=== PATIENT | male | born 1950 | race Caucasian/White ===

== ENCOUNTER 2020-10-11 10:56 | Outpatient (REF) | payer MEDICARE, SELFPAY | END 2020-10-11 10:57 | disposition home or self-care (01) | LOC: HO.BBR 10:56 | PROVIDERS: PCP Family Medicine; Visit Provider Internal Medicine | DX: Z13.89 Encounter for screening for other disorder (principal) ==

== ENCOUNTER 2020-10-11 11:40 | Outpatient (REF) | payer SELFPAY ==
[2020-10-11 12:44] LABS: Blood Donor Cholesterol 125
== END 2020-10-11 11:41 | disposition home or self-care (01) ==
LOC: HO.LNC 11:40
PROVIDERS: Visit Provider Pathology Anatomic Pathology & Clinical Pathology
DX: Z13.89 Encounter for screening for other disorder (principal)
CPT/HCPCS: 82465

== ENCOUNTER 2021-02-26 08:52 | Outpatient (REF) | payer MEDICARE, MEDICAID, SELFPAY | END 2021-02-26 08:53 | disposition home or self-care (01) | LOC: HO.BBR 08:52 | PROVIDERS: Visit Provider Internal Medicine | DX: Z13.89 Encounter for screening for other disorder (principal) ==

== ENCOUNTER 2021-03-25 08:56 | Outpatient (REF) | payer MEDICARE, MEDICAID, SELFPAY | END 2021-03-25 08:57 | disposition home or self-care (01) | LOC: HO.BBR 08:56 | PROVIDERS: Visit Provider Internal Medicine | DX: Z13.89 Encounter for screening for other disorder (principal) ==

== ENCOUNTER 2021-07-22 09:12 | Outpatient (REF) | payer MEDICARE, OTHER, SELFPAY | END 2021-07-22 09:13 | disposition home or self-care (01) | LOC: HO.BBR 09:12 | PROVIDERS: PCP Family Medicine; Visit Provider Internal Medicine | DX: Z13.89 Encounter for screening for other disorder (principal) ==

== ENCOUNTER 2021-10-22 14:40 | Outpatient (REF) | payer MEDICARE, OTHER, SELFPAY | END 2021-10-22 14:41 | disposition home or self-care (01) | LOC: HO.BBR 14:40 | PROVIDERS: Visit Provider Internal Medicine | DX: Z13.89 Encounter for screening for other disorder (principal) ==

== ENCOUNTER → 2023-01-08 09:43 | Outpatient (BNVA) | payer MEDICARE, SELFPAY | PROVIDERS: PCP Family Medicine; Visit Provider Psychiatry & Neurology Neurology | DX: G25.2 Other specified forms of tremor (principal); G47.10 Hypersomnia, unspecified; R06.83 Snoring | CPT/HCPCS: 99202 ==

== ENCOUNTER → 2023-02-06 08:50 | Outpatient (REF) | payer MEDICARE, SELFPAY | LOC: HO.SL 08:50 | PROVIDERS: PCP Family Medicine; Visit Provider Psychiatry & Neurology Neurology | DX: G47.10 Hypersomnia, unspecified (principal); R06.83 Snoring | CPT/HCPCS: 95806 ==

== ENCOUNTER 2023-02-20 08:00 | Outpatient (RCR) | payer MEDICARE, SELFPAY ==
--- NOTE | 2023-01-21 10:38 | MHC.OT.EP ---
Addendum entered and electronically signed by LACY Lazo 04/16/23 11:02: Therapist clarifying that assessment was for tremors of the hand and patient does not have diagnosis of Parkinson's. Original Note: [address] [phone] Occupational Therapy Plan of Care Date of Evaluation: 01/21/23 Diagnosis: Tremors Pain Location: Right thumb > left thumb, general ache in joints of hands Pain Score: 8 Pain Scale Used: Numeric (0 - 10) Aggravating Factors: Increased use Alleviating Factors: Tylenol occasionally Assessment: 72 yo male male presents w/ bilateral hand pain, weakness and tremors over the past year. He was referred to the neurologist and diagnosed w/ Parkinson's Disease. He has now been referred to OT for assessment and management of tremors, but also reports high pain in both hands/thumbs and occasional right hand numbness. On assessment, he has s/s consistent w/ right carpal tunnel syndrome and B/L CMC arthritis, as well as intermittent mild tremors in both hands, right more so than left. We have discussed current conditions and he is hopeful to decrease pain and tremors in order to continue playing instruments and participation in everyday activities. Frequency and Duration: The patient will be seen 1x/wk for 4 weeks Short Term Goals: Ind w/ nighttime orthosis wear for R CTS Ind w/ daytime CMC orthoses as needed for arthritic pain/support Ind w/ HEP for range nerve glides Pt to discuss/trial adaptive equipment for ease w/ hand writing, utensils, instruments, etc Fisheries Technician Goals: Pt to report decrase in nighttime wakings due to hand numbness Pt to demo good CMC positioning w/ picking up and manipulating everyday objects Pt to report use of adaptive equipment and increasing ease of playing instruments, holding objects, etc Pt to report pain free at rest in both hands Decrease tremors through adaptations and modification techniques Treatment Plan: Therapeutic Exercise Therapeutic Activity Home Exercise Program Splinting Patient Education ADL Training Paraffin Fluidotherapy MHP Joint Mobilization Soft Tissue Mobilization Kinesiotaping Nighttime right CTS splint Daytime B/L CMC splint Electronically Signed By: CARLOS Lazo/L CHT Please Sign and return to therapist. Thank you once again for your referral.
--- NOTE | 2023-02-20 08:40 | MHC.OT.DC ---
[address] [phone] F: [phone] Occupational Therapy Discharge Note Patient Name: Terry Canela Provider: Dr Julia Reed Diagnosis: Tremors, Hand pain Date of Evaluation: 01/21/23 Date of Discharge: 02/20/23 Treatments to Date: 5 Discharge Summary: Terry was referred to OT for assessment of hand pain and tremors, although he has reported that pain is primary concern at this time. It has been exacerbated by the weather and his job tasks (playing in [employer]) and continues to have moderate/high pain in B/L MCPs and CMCs, right worse than left today. He also reports occasional numbness during the nighttime. We have trialed nighttime resting orthosis w/ MCP block, as well as thumb CMC orthoses, but he is only able to tolerate orthosis wear for short period before becoming uncomfortable. I have shown him pre-guillaume neoprene orthosis that may be more comfortable and flexible. He has visible ulnar deviation at MCPs and has comfort w/ compression gloves and therapy tape. At this time he has requested consult for orthopedic services to address thumb pain. Electronically Signed By: Shanon Caal OTR/Abad MARTINEZ Reviewed/agree with student documentation: Therapist: Please Sign and return to therapist, thank you for your referral.
== END 2023-02-20 08:41 | disposition home or self-care (01) ==
LOC: HO.OT 08:00
PROVIDERS: PCP Family Medicine; Visit Provider Psychiatry & Neurology Neurology
DX: G25.2 Other specified forms of tremor (principal)
CPT/HCPCS: 29125; 29130; 97110; 97140; 97166; 97760

== ENCOUNTER 2025-01-30 13:05 | Outpatient (REF) | payer MEDICARE, SELFPAY ==
--- OUTSIDE RECORDS SUMMARY | 2025-01-30 15:21 | XMS_ITS | Clinical Summary ---
Author Organization [facility] Address [address] [place], [place] [id number] Care Team Providers Care Consulting Intern Name Role Phone Gagan Sterling MD Primary Care Provider [phone] Allergies No known active allergies Medications Medication Sig Dispensed Refills Start Date End Date Status aspirin EC 81 MG tablet Take 81 mg by mouth daily. 0 Active metoprolol succinate (TOPROL-XL) 24 hr tablet 50 mg Take by mouth daily. 0 Active atorvastatin (LIPITOR) tablet 20 mg Take 20 mg by mouth daily. 0 Active Active Problems No known active problems Social History Tobacco Use Types Packs/Day Years Used Date Smoking Tobacco: Former Smokeless Tobacco: Never Alcohol Use Standard Drinks/Week Comments Yes 0 (1 standard drink = 0.6 oz pur e alcohol) occasional Sex and Gender Information Value Date Recorded Sex Assigned at Not on file Gender Identity Not on file Sexual Orientation Not on file Job Start Date Occupation Industry Not on file Not on file Not on file Last Filed Vital Signs Vital Sign Reading Time Taken Comments Blood Pressure 139/78 01/28/2022 1:19 PM EST Pulse 65 01/28/2022 1:19 PM EST Temperature 37.2 ??C (98.9 ??F) 01/28/2022 1:19 PM ES T Respiratory Rate - - Oxygen Saturation 100% 01/28/2022 1:19 PM EST Inhaled Oxygen Concentration - - Weight 92.5 kg (204 lb) 01/28/2022 1:19 PM EST Height 180.3 cm (5' 11 ) 09/06/2019 9:24 AM EDT Body Mass Index 28.45 09/06/2019 9:24 AM EDT Plan of Treatment Health Maintenance Due Date Last Done Comments Hepatitis C Screening 1950 COVID-19 Vaccine (#1) 1950 Depression Screening 1963 Preventative Health Evaluation 1969 DTap / Tdap / Td (1 - Tdap) 1970 Colon Cancer Screening (Colonoscopy) 1996 Shingrix-Zoster Vaccine (1 of 2) 2001 Fall Risk Assessment 2016 Pneumococcal Vaccine (1 of 1 - PCV) 2016 Influenza Vaccine (#1) 2024 RSV Adult > 60+ Yrs or Pregn ant (1 - 1-dose 75+ series) 2026 Hepatitis B Vaccines Aged Out No long er eligible based on patient's age to complete this topic RSV Ped < 20 months Aged Out No longe r eligible based on patient's age to complete this topic Care Teams Consulting Intern Relationship Specialty Start Date End Date Gagan Sterling MD [address] [place] [address] PCP - General Family Medicine 07/31/17
--- OUTSIDE RECORDS SUMMARY | 2025-01-30 15:22 | XMS_ITS | Clinical Summary ---
Author Organization [facility] Address [address] [place] [address] Care Team Providers Care Adult Nurse Practitioner Name Role Phone Gagan Sterling DO Primary Care Provider [phone] Medications atorvastatin (LIPITOR) 20 mg tablet TAKE 1 TABLET BY MOUTH EVERY DAY 90 tablet 2 5 Active atorvastatin (LIPITOR) 20 mg tablet Take 1 tablet (20 mg total) by mouth 1 (one) time each day. 90 each 4 01/10/20 25 Discontinued Surgical History Surgery Date Site/Laterality Comments OTHER SURGICAL HISTORY 01/03/2013 PROCEDURE: CT ENDOSCOPY UPPER SMALL INTESTINE COLONOSCOPY 06/09/2012 PROCEDURE: HISTORICAL COLONOSCOPY OTHER SURGICAL HISTORY 03/04/2022 PROCEDURE: CT ENDOSCOPY UPPER SMALL INTESTINE; COMMENT: abnormal COLONOSCOPY 03/04/2022 PROCEDURE: HISTORICAL COLONOSCOPY; COMMENT: abnormal OTHER SURGICAL HISTORY 04/21/2022 PROCEDURE: HISTORY OTHER; COMMENT: Hernia repair Medical History Medical History Date Comments Chronic obstructive lung disease (CMS/HCC) DX:Chronic obstructive lung disease (HCC) Cyst of left kidney DX:Cyst of l eft kidney Diverticulitis DX:Diverticuliti s Hemochromatosis DX:Hemochromatos is Hiatal hernia DX:Hiatal hernia Lumbar radiculopathy DX:Lumbar r adiculopathy Lumbar spinal stenosis DX:Lumbar spinal stenosis Macrocytosis DX:Macrocytosis Obesity DX:Obesity Obstructive sleep apnea syndrome DX:Obstructive sleep apnea syndrome Spinal stenosis DX:Spinal stenos is Thyroid nodule DX:Thyroid nodul e Chronic ischemic heart disease D X:Chronic ischemic heart disease Hyperlipidemia DX:Hyperlipidemi a Essential hypertension DX:Essent ial hypertension Anemia DX:Anemia Quintero's esophagus without dysplasia DX:Quintero's esophagus without dysplasia Gastritis DX:Gastritis Tubular adenoma of colon DX:Tubu lar adenoma of colon; COMMENT: X3 Hemorrhoids DX:Hemorrhoids ED (erectile dysfunction) DX:ED (erectile dysfunction) Near syncope DX:Near syncope Cataract DX:Cataract Uninodular goiter DX:Uninodular goiter Postural dizziness with presyncope DX:Postural dizziness with presyncope Cellulitis DX:Cellulitis Thrombophlebitis of upper extremity DX:Thrombophlebitis of upper extremity Ankle edema, bilateral DX:Ankle edema, bilateral Family History Medical History Relation Name Comments Prostate cancer Brother 1 Lung cancer Brother 2 Stroke Mother Relation Name Status Comments Brother 1 Brother 2 Mother Social History Tobacco Use Types Packs/Day Years Used Date Smoking Tobacco: Former Smokeless Tobacco: Never Alcohol Use Standard Drinks/Week Comments Not Currently 0 (1 standard drink = 0.6 oz pur e alcohol) Sex and Gender Information Value Date Recorded Sex Assigned at Not on file Legal Sex Male 12:01 AM EST Gender Identity Not on file Sexual Orientation Not on file Obstetrics History Last Filed Vital Signs Vital Sign Reading Time Taken Comments Blood Pressure 110/72 02/02/2024 9:19 AM EST Sitting L Arm Pulse 59 02/02/2024 9:19 AM EST Temperature - - Respiratory Rate - - Oxygen Saturation - - Inhaled Oxygen Concentration - - Weight 78.7 kg (173 lb 9.6 oz) 02/02/2024 9:19 AM EST Height 180.3 cm (5' 11 ) 02/02/2024 9:1 9 AM EST Body Mass Index 24.21 02/02/2024 9:19 AM EST Plan of Treatment Health Maintenance Due Date Last Done Comments DTaP,Tdap,and Td Vaccines (1 - Tdap) 1970 Pneumococcal Vaccine: 50+ Years (1 of 2 - PCV) 1970 Zoster Vaccines (1 of 2) 2001 RSV Immunization Patients 60+ Years Old (1 - Risk 60-74 years 1-dose series) 2011 Depression Screening 11/08/2022 Falls Risk Assessment 11/08/2022 Hepatitis C Screening 11/08/2022 Social Influencers of Health Screening 11/08/2022 Hypertension/CHF/CAD Annual BMP Blood Test 11/09/2022 Colorectal Cancer Screening: Colonoscopy 03/10/2025 03/10/2022 Cholesterol Screening (Lipid Panel) 04/10/2027 04/10/2022 Abdominal Aortic Aneurysm (AAA) Screen Completed 11/08/2021 COVID-19 Vaccine Completed 09/19/2024, , 03/18/2022, Additional history exists Influenza Vaccine Completed 09/19/2024, , 09/04/2022, Additional history exists HIB Vaccines Aged Out No longer eligi ble based on patient's age to complete this topic HPV Vaccines Aged Out No longer eligi ble based on patient's age to complete this topic Hepatitis A Vaccines Aged Out No long er eligible based on patient's age to complete this topic Hepatitis B Vaccines Aged Out No long er eligible based on patient's age to complete this topic IPV Vaccines Aged Out No longer eligi ble based on patient's age to complete this topic MMR Vaccines Aged Out No longer eligi ble based on patient's age to complete this topic Meningococcal ACWY Vaccine Aged Out N o longer eligible based on patient's age to complete this topic Meningococcal B Vacine Aged Out No lo nger eligible based on patient's age to complete this topic RSV Immunization Patients Under 20 months Aged Out No longer eligible based on patient's age to complete this topic Varicella Vaccines Aged Out No longer eligible based on patient's age to complete this topic Procedures Procedure Name Priority Date/Time Associated Diagnosis Comments US ABDOMEN AORTA SCR STUDY AAA Routine 11/08/2021 10:24 AM EST Peripheral vascular disease, unspecified (CMS/HCC) from Last 3 Months or Most Recently Relevant to Health Maintenance Results * US ABDOMEN AORTA SCR STUDY AAA (11/08/2021 10:24 AM EST) Anatomical Region Laterality Modality Ultrasound 11/08/2021 7:27 AM EST Narrative 11/08/2021 10:24 AM EST [facility] Diagnostic Imaging Department [address] [place] [id number] Patient: ??JOSE MONTANA ?/Age/Sex: 1950 - 71 - M Unit#: ??[id number] ? Location/Status: ??SPDIUS/REG CLI ? Mnemonic/Ordering Site: ??AAASCRSTUD/SPUS Ordering Physician: ??GAGAN STERLING MD US Abdomen Aorta Scr Study AAA - 11/08/21738 History: Atherosclerotic peripheral vascular disease. ??Aortic aneurysm screening. FINDINGS: Targeted ultrasound assessment of the abdominal aorta and proximal common iliac arteries show normal contour and caliber abdominal aorta AP and transverse measurements proximal, mid and distal vessel as follows: 2.6 x 2.4 cm, 1.6 x 1.3 cm and 1.5 x 2.1 cm. ??AP diameter of common iliac arteries are 0.85 and 1.1 cm on the right and left respectively. IMPRESSION: Normal caliber abdominal aorta and proximal common iliac arteries. Dictating Physician: ??JERO SERRANO MD Electronically Signed by: ??JERO SERRANO MD Dic Date/Time: ??11/08/21 0957 Sign date/Time: ??11/08/21 1024 Procedure Note Jero Serrano MD - 11/19/2022 [facility] Diagnostic Imaging Department [address] [place], [place] [id number] Patient: JOSE MONTANA /Age/Sex: 1950 - 71 - M Unit#: [id number] Location/Status: SPDIUS/REG CLI Mnemonic/Ordering Site: AAASCRSTUD/SPUS Ordering Physician: GAGAN STERLING MD US Abdomen Aorta Scr Study AAA - 11/08/2139 History: Atherosclerotic peripheral vascular disease. Aortic aneurysm screening. FINDINGS: Targeted ultrasound assessment of the abdominal aorta andproximal common iliac arteries show normal contour and caliber abdominal aorta APand transverse measurements proximal, mid and distal vessel as follows: 2.6 x2.4 cm, 1.6 x 1.3 cm and 1.5 x 2.1 cm. AP diameter of common iliac arteriesare 0.85 and 1.1 cm on the right and left respectively. IMPRESSION: Normal caliber abdominal aorta and proximal common iliacarteries. Dictating Physician: JERO SERRANO MD Electronically Signed by: JERO SERRANO MD Dic Date/Time: 11/08/21 0957 Sign date/Time: 11/08/21 1024 us Gagan Sterling DO IMG US PROCEDURES Final Result from Last 3 Months or Most Recently Relevant to Health Maintenance Advance Directives Documents on File Type Date Recorded Patient Web Marketing Manager Expl anation Health Care Decision (hx) 01/13/2014 AD JOHNSON DIRECTIVE Health Care Decision (hx) 01/13/2014 AD JOHNSON DIRECTIVE Health Care Decision (hx) 01/13/2014 AD JOHNSON DIRECTIVE Health Care Decision (hx) 01/13/2014 AD JOHNSON DIRECTIVE Health Care Decision (hx) 01/13/2014 AD JOHNSON DIRECTIVE Health Care Decision (hx) 01/13/2014 AD JOHNSON DIRECTIVE Health Care Decision (hx) 01/13/2014 AD JOHNSON DIRECTIVE Health Care Decision (hx) 01/13/2014 AD JOHNSON DIRECTIVE Care Teams Adult Nurse Practitioner Relationship Specialty Start Date End Date Gagan Sterling DO [address] [place] [address] PCP - General Family Medicine 07/31/17
== END 2025-01-30 13:06 | disposition home or self-care (01) ==
LOC: HO.BBR 13:05
PROVIDERS: PCP Family Medicine; Visit Provider Internal Medicine Hematology
DX: Z13.89 Encounter for screening for other disorder (principal)